=== PATIENT | male | born 1980 | race African-American/Black ===

== ENCOUNTER 2017-11-06 22:51 | Inpatient (IN) | payer OTHER ==
[~2017-11-06 22:51] MED LIST: MELATONIN 5 MG TABLETS PO PRN
[2017-11-06 23:34] VITALS: BMI 46.8
--- NOTE | 2017-11-06 23:37 | HP ---
CIWA Score - CIWA Score Nausea/Vomitin-No Nausea/No Vomiting Muscle Tremors: 2 Anxiety: 2 Agitation: 2 Paroxysmal Sweats: No Perspiration Orientation: 1-Uncertain about Date Tacttile Disturbances: 2-Mild Itch/Numbness/Burn (left thigh) Auditory Disturbances: 0-None Visual Disturbances: 1-Very Mild Sensitivity Headache: 0-None Present CIWA-Ar Total Score: 10 Admission ROS BHS - HPI Chief Complaint: " I need to change my life" Allergies/Adverse Reactions: Allergies Allergy/AdvReac Type Severity Reaction Status Date / Time No Known Allergies Allergy Verified 02/02/16 11:40 History of Present Illness: 37 yo male with hx of alcohol, K2, nicotine and cocaine dependence is here seeking detox. PMHX: HTN (no meds) migraines, back spasms, chronic shoulder pain, insomnia. Denies suicidal / homicidal ideation or suicide attempts. Denies hx of seizures or blackouts. Last detox [facility] 02/01/18 - 02/13/18. Exam Limitations: No Limitations - Review of Systems Constitutional: Chills, Changes in sleep EENT: reports: No Symptoms Reported Respiratory: reports: No Symptoms reported Cardiac: reports: No Symptoms Reported GI: reports: Poor Fluid Intake : reports: No Symptoms Reported Musculoskeletal: reports: Back Pain, Joint Pain (left hip pain, bilateral shoulders) Integumentary: reports: Pruritus Neuro: reports: See HPI, Numbness (left hip, reports seen PMD and result of back spasm) Endocrine: reports: Increased Thirst Hematology: reports: No Symptoms Reported Psychiatric: reports: Orientated x3, Depressed, other (attributes alcohol use father has hx alcoholism) Other Systems: Reviewed and Negative Patient History - Patient Medical History Hx Anemia: No Hx Asthma: No Hx Chronic Obstructive Pulmonary Disease (COPD): No Hx Cancer: No Hx Cardiac Disorders: No Hx Congestive Heart Failure: No Hx Hypertension: Yes (no meds) Hx Hypercholesterolemia: No Hx Pacemaker: No HX Cerebrovascular Accident: No Hx Seizures: No Hx Dementia: No Hx Diabetes: No Hx Gastrointestinal Disorders: No Hx Liver Disease: No Hx Genitourinary Disorders: No Hx Sexually Transmitted Disorders: Yes (treated for Clamydia in the past.) Hx Renal Disease (ESRD): No Hx Thyroid Disease: No Hx Human Immunodeficiency Virus (HIV): No (declines testing today) Hx Hepatitis C: No Hx Depression: No Hx Suicide Attempt: No (denies) Hx Bipolar Disorder: No Hx Schizophrenia: No - Patient Surgical History Past Surgical History: Yes Hx Neurologic Surgery: No Hx Cataract Extraction: No Hx Cardiac Surgery: No Hx Lung Surgery: No Hx Breast Surgery: No Hx Breast Biopsy: No Hx Abdominal Surgery: No Hx Appendectomy: No Hx Cholecystectomy: No Hx Genitourinary Surgery: No Hx Section: No Hx Orthopedic Surgery: Yes (Dislocation of both shoulders 2000) Other Surgical History: LEFT WRIST AND RIGHT THUMB SX FOR CYST REMOVAL IN 2009 Anesthesia Reaction: No - PPD History Date: 02/04/16 Results: 0mm PPD to be Administered?: Yes - Smoking Cessation Smoking history: Current every day smoker Have you smoked in the past 12 months: Yes Aproximately how many cigarettes per day: 6 Cigars Per Day: 0 Hx Chewing Tobacco Use: No Initiated information on smoking cessation: Yes 'Breaking Loose' booklet given: 11/06/17 - Substance & Tx. History Hx Alcohol Use: Yes Hx Substance Use: Yes Substance Use Type: Alcohol, Cocaine Hx Substance Use Treatment: Yes - Substances Abused Alcohol Route: Oral Frequency: Daily Amount used: 3 pints Gin Age of first use: 14 Date of Last Use: 11/05/17 Cocaine Route: Inhalation Frequency: 3-6 times per week Amount used: 1 gram Age of first use: 23 Date of Last Use: 11/02/17 K2 Route: Smoking Frequency: Daily Amount used: 40 blunts Age of first use: 32 Date of Last Use: 11/05/17 Family Disease History - Family Disease History Family Disease History: Diabetes: Grandparent, Mother Admission Physical Exam [facility] Physical General Appearance: Yes: Disheveled, Sweating, Anxious HEENTM: Yes: EOMI, Hearing grossly Normal, Normal ENT Inspection, Normocephalic , Normal Voice, GH[place], Pharynx Normal, Tm's normal Respiratory: Yes: Chest Non-Tender, Lungs Clear, Normal Breath Sounds, No Respiratory Distress, No Accessory Muscle Use Neck: Yes: Within Normal Limits Breast: Yes: Breast Exam Deferred Cardiology: Yes: Regular Rhythm, Regular Rate Abdominal: Yes: Normal Bowel Sounds, Non Tender, Flat, Soft Genitourinary: Yes: Within Normal Limits Back: Yes: Normal Inspection, Muscle Spasm Musculoskeletal: Yes: full range of Motion, Gait Steady, Pelvis Stable, Back pain Neurological: Yes: 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 intact, Fully Oriented, Alert, Motor Strength 5/5, Depressed Affect Integumentary: Yes: Normal Color, Warm, Diaphoresis Lymphatic: Yes: Within Normal Limits - Diagnostic (1) Alcohol dependence with withdrawal Current Visit: Yes Status: Acute Qualifiers: Complication of substance-induced condition: uncomplicated Qualified Code(s ): F10.230 - Alcohol dependence with withdrawal, uncomplicated (2) Synthetic cannabinoid dependence Current Visit: Yes Status: Acute (3) Back pain Current Visit: Yes Status: Acute Qualifiers: Back pain location: low back pain Chronicity: chronic Back pain laterality: left Sciatica presence: with sciatica (4) Shoulder pain Current Visit: Yes Status: Chronic Qualifiers: Chronicity: chronic Laterality: bilateral Qualified Code(s): M25.511 - Pain in right shoulder; M25.512 - Pain in left shoulder; G89.29 - Other chronic pain (5) Cocaine dependence Current Visit: Yes Status: Chronic Qualifiers: Substance use status: uncomplicated Qualified Code(s): F14.20 - Cocaine dependence, uncomplicated (6) Essential hypertension Current Visit: Yes Status: Chronic Comment: Kelly reports currenlty not taking any medications. (7) Nicotine dependence Current Visit: Yes Status: Chronic Qualifiers: Nicotine product type: cigarettes Substance use status: uncomplicated Qualified Code(s): F17.210 - Nicotine dependence, cigarettes, uncomplicated Cleared for Admission S - Detox or Rehab [facility] Level of Care: Medically Supervised Detox Regimen/Protocol: Librium S Breath Alcohol Content Breath Alcohol Content: 0 Urine Drug Screen - Results Drug Screen Negative: No
[2017-11-06] MEDS ORDERED: NICOTINE POLACRILEX 2 MG GUM BC PRN (23:46)
[2017-11-06] MEDS ORDERED: MAGNESIUM HYDROX 2400MG/30ML ORAL SUSPENSION 30 ML CUP PO PRN (23:46)
[2017-11-06] MEDS ORDERED: LOPERAMIDE HCL 2 MG CAPSULE PO PRN (23:46)
[2017-11-06] MEDS ORDERED: guaiFENesin/D-METHORPHAN HB 10 ML UNIT-DOSE CUPS PO PRN (23:46)
[2017-11-06] MEDS ORDERED: IBUPROFEN 400 MG TABLET (FP) PO PRN (23:46)
[2017-11-06] MEDS ORDERED: ACETAMINOPHEN 325 MG TABLET (FP) PO PRN (23:46)
[2017-11-06] MEDS ORDERED: MAG HYDROX/AL HYDROX/SIMETH 30 ML UNIT-DOSE CUP PO PRN (23:46)
[2017-11-06] MEDS ORDERED: chlordiazePOXIDE HCL 25 MG CAPSULE PO ONE (23:46)
[2017-11-06] MEDS ORDERED: MAGNESIUM CITRATE 300 ML BOTTLE PO PRN (23:46)
[2017-11-06] MEDS ORDERED: MENTHOL/PHENOL 1 EACH UD MM PRN (23:46)
[2017-11-06] MEDS ORDERED: hydrOXYzine PAMOATE 50 MG CAPSULE (FP) PO PRN (23:46)
[2017-11-06] MEDS ORDERED: P-EPHED 60MG/TRIPROLIDI 2.5MG TABLET PO PRN (23:46)
[2017-11-06] MEDS ORDERED: chlordiazePOXIDE HCL 25 MG CAPSULE PO PRN (23:46)
[2017-11-07] MEDS: CYCLOBENZAPRINE HCL 5 MG TABLET PO SCH ×4 (01:37→22:12)
[2017-11-07] MEDS: chlordiazePOXIDE HCL 25 MG CAPSULE PO SCH ×6 (03:18→22:12)
[2017-11-07 10:18] LABS: HEMATOCRIT 42.9 % (35.4-49); HEMOGLOBIN 14.5 GM/dL (11.7-16.9); MCHC 33.9 g/dl (32.0-35.9); MEAN CELL VOLUME 91.4 fl (80-96); MEAN PLT VOLUME 7.8 fl (7.5-11.1); PLATELET COUNT 235 K/MM3 (134-434); RBC 4.69 M/mm3 (4.00-5.60); RDW 15.5 % (11.9-15.9); WHITE BLOOD COUNT 7.3 K/mm3 (4.0-10.0)
[2017-11-07] MEDS: PRENATAL VITAMINS W/ FOLIC ACID TABLET (FP) PO SCH (10:50)
[2017-11-07] MEDS: NICOTINE 14 MG/24 HOURS TOPICAL PATCH TD SCH (10:50)
[2017-11-07 11:26] LABS: ALBUMIN 3.3 g/dl (3.4-5.0); ANION GAP 9 (8-16); BLOOD UREA NITROGEN 8 mg/dL (7-18); CALCIUM 8.1 mg/dL (8.5-10.1); CHLORIDE 107 mmol/L (98-107); CO2 26 mmol/L (21-32); CREATININE 0.7 mg/dL (0.7-1.3); GLUCOSE,RANDOM 86 mg/dL (74-106); SGOT/AST 27 U/L (15-37); SGPT/ALT 46 U/L (12-78); SODIUM 142 mmol/L (136-145)
[2017-11-07 11:27] LABS: ALK PHOS 90 U/L (45-117); BILIRUBIN,TOTAL 0.5 mg/dL (0.2-1.0); TOT PROT 6.2 g/dl (6.4-8.2)
--- NOTE | 2017-11-07 11:54 | EKG ---
Test Reason : Blood Pressure : / mmHG Vent. Rate : 057 BPM Atrial Rate : 057 BPM P-R Int : 142 ms QRS Dur : 088 ms QT Int : 420 ms P-R-T Axes : 072 066 052 degrees QTc Int : 408 ms SINUS BRADYCARDIA OTHERWISE NORMAL ECG NO PREVIOUS ECGS AVAILABLE Confirmed by MALIKA GALVEZ, ANGELO ([id number]) on 11/07/2017 11:53:52 AM Referred By: Confirmed By:ANGELO DALY MD
--- NOTE | 2017-11-07 13:37 | PN ---
S CIWA - CIWA Score Nausea/Vomitin-No Nausea/No Vomiting Muscle Tremors: 4-Moderate,w/Arms Extend Anxiety: 4-Mod. Anxious/Guarded Agitation: 4-Moderately Restless Paroxysmal Sweats: 1-Minimal Palms Moist Orientation: 0-Oriented Tacttile Disturbances: 0-None Auditory Disturbances: 0-None Visual Disturbances: 0-None Headache: 0-None Present CIWA-Ar Total Score: 13 BHS Progress Note (SOAP) Subjective: ANXIETY,SWEATS,FATIGUE. Objective: 11/07/17 13:36 Vital Signs 11/07/17 11/07/17 06:30 09:29 Temperature 96.7 F L 96.9 F L Pulse Rate 64 66 Respiratory 18 18 Rate Blood Pressure 135/71 134/80 Laboratory Tests 11/07/17 11/07/17 11/07/17 07:30 07:30 07:30 WBC 7.3 RBC 4.69 Hgb 14.5 Hct 42.9 MCV 91.4 MCH 31.0 MCHC 33.9 RDW 15.5 Plt Count 235 MPV 7.8 D Sodium 142 Potassium 4.0 Chloride 107 Carbon Dioxide 26 Anion Gap 9 BUN 8 Creatinine 0.7 D Creat Clearance w eGFR > 60 Random Glucose 86 Calcium 8.1 L Total Bilirubin 0.5 D AST 27 D ALT 46 D Alkaline Phosphatase 90 Total Protein 6.2 L Albumin 3.3 L D RPR Titer Nonreactive Assessment: 11/07/17 13:36 WITHDRAWAL SX Plan: CONTINUE DETOX
--- NOTE | 2017-11-07 13:51 | CONSULT ---
[facility] Psychiatric Consult - Data Date of interview: 11/07/17 Admission source: [facility] Identifying data: Patient is a 37 year old single male,father of two unemployed , homeless, and supported on SSI benefits. This is one of multiple admissions for patient. Pt. admitted to for alcohol dependence. Substance Abuse History: Smoking Cessation. Smoking history: Current every day smoker. Have you smoked in the past 12 months: Yes. Aproximately how many cigarettes per day: 6. Cigars Per Day: 0. Hx Chewing Tobacco Use: No. Initiated information on smoking cessation: Yes. 'Breaking Loose' booklet given : 11/06/17. - Substance & Tx. History. Hx Alcohol Use: Yes. Hx Substance Use : Yes. Substance Use Type: Alcohol, Cocaine. Hx Substance Use Treatment: Yes. - Substances Abused. Alcohol. Route: Oral. Frequency: Daily. Amount used: 3 pints Gin. Age of first use: 14. Date of Last Use: 11/05/17. Cocaine. Route: Inhalation. Frequency: 3-6 times per week. Amount used: 1 gram. Age of first use: 23. Date of Last Use: 11/02/17. K2. Route: Smoking. Frequency: Daily. Amount used: 40 blunts. Age of first use: 32. Date of Last Use: 11/05/17 Medical History: LEFT WRIST AND RIGHT THUMB SX FOR CYST REMOVAL IN 2009, hypertension Psychiatric History: Patient denies h/o psychiatric hospitalizations, outpatient care, and suicide attempt. Physical/Sexual Abuse/Trauma History: Denies. Mental Status Exam - Mental Status Exam Alert and Oriented to: Time, Place, Person Cognitive Function: Good Patient Appearance: Well Groomed Mood: Hopeful Affect: Mood Congruent Patient Behavior: Cooperative Speech Pattern: Appropriate Voice Loudness: Normal Thought Process: Intact, Goal Oriented Thought Disorder: Not Present Hallucinations: Denies Suicidal Ideation: Denies Homicidal Ideation: Denies Insight/Judgement: Poor Sleep: Fair Appetite: Good Muscle strength/Tone: Normal Gait/Station: Normal Psychiatric Findings - Problem List ([place] 1, 2,3) (1) Alcohol dependence with withdrawal Current Visit: Yes Status: Acute Qualifiers: Complication of substance-induced condition: uncomplicated Qualified Code(s ): F10.230 - Alcohol dependence with withdrawal, uncomplicated (2) Nicotine dependence Current Visit: Yes Status: Acute Qualifiers: Nicotine product type: cigarettes Substance use status: in withdrawal Qualified Code(s): F17.213 - Nicotine dependence, cigarettes, with withdrawal - Initial Treatment Plan Initial Treatment Plan: Psychoeducation provided. Detoxification in progress. Observation.
[2017-11-07] MEDS: THIAMINE HCL 100 MG TABLET (FP) PO SCH (22:12)
[2017-11-08] MEDS: chlordiazePOXIDE 5 MG CAPSULE PO SCH ×4 (05:33→22:13)
[2017-11-08] MEDS: CYCLOBENZAPRINE HCL 5 MG TABLET PO SCH ×3 (05:33→22:14)
[2017-11-08] MEDS: PRENATAL VITAMINS W/ FOLIC ACID TABLET (FP) PO SCH (10:35)
[2017-11-08] MEDS: NICOTINE 14 MG/24 HOURS TOPICAL PATCH TD SCH (10:35)
[2017-11-08] MEDS ORDERED: cloNIDine HCL 0.1 MG TABLET PO ONE (11:41)
--- NOTE | 2017-11-08 13:38 | PN ---
[facility] CIWA - CIWA Score Nausea/Vomitin-No Nausea/No Vomiting Muscle Tremors: 4-Moderate,w/Arms Extend Anxiety: 4-Mod. Anxious/Guarded Agitation: 4-Moderately Restless Paroxysmal Sweats: 1-Minimal Palms Moist Orientation: 0-Oriented Tacttile Disturbances: 0-None Auditory Disturbances: 0-None Visual Disturbances: 0-None Headache: 0-None Present CIWA-Ar Total Score: 13 S Progress Note (SOAP) Subjective: ANXIETY,SWEATS,IRRITABILITY,AGITATIONS. ELEVATED BP AND NO MEDS. PT HAD BEEN ON NORVASC AND HYDROCHLOROTHIAZIDE ON PREVIOUS ADMISSIONS HERE. HX OF HTN BUT APPEARS NONCOMPLIANT WITH FOLLOWING UP AFTER TREATMENT HERE. Objective: 11/08/17 13:36 Vital Signs - 24 hr 11/07/17 11/07/17 11/07/17 13:40 17:44 22:06 Temperature 96.6 F L 97.9 F 97.3 F L Pulse Rate 60 65 71 Respiratory 18 18 18 Rate Blood Pressure 141/76 156/90 159/104 11/08/17 11/08/17 11/08/17 00:30 03:30 06:09 Temperature 96.4 F L Pulse Rate 59 L Respiratory 18 18 18 Rate Blood Pressure 176/108 11/08/17 11/08/17 11/08/17 06:30 07:58 10:15 Temperature 97.1 F L 97.1 F L Pulse Rate 71 57 L Respiratory 18 18 18 Rate Blood Pressure 151/99 165/97 Laboratory Tests 11/07/17 11/07/17 11/07/17 07:30 07:30 07:30 WBC 7.3 RBC 4.69 Hgb 14.5 Hct 42.9 MCV 91.4 MCH 31.0 MCHC 33.9 RDW 15.5 Plt Count 235 MPV 7.8 D Sodium 142 Potassium 4.0 Chloride 107 Carbon Dioxide 26 Anion Gap 9 BUN 8 Creatinine 0.7 D Creat Clearance w eGFR > 60 Random Glucose 86 Calcium 8.1 L Total Bilirubin 0.5 D AST 27 D ALT 46 D Alkaline Phosphatase 90 Total Protein 6.2 L Albumin 3.3 L D RPR Titer Nonreactive OTHER LABS PENDING Assessment: 11/08/17 13:37 WITHDRAWAL SX Plan: CONTINUE DETOX CLONIDINE 0.1 MG PO NOW GIVEN NORVASC 10 MG PO DAILY MAY ADD HYDROCHLOROTHIAZIDE 25 MG PO DAILY IF NOT UNDER CONTROL.
[2017-11-08] MEDS: amLODIPine BESYLATE 10 MG TABLET (FP) PO SCH (14:29)
[2017-11-08 19:52] LABS: URINE APPEARANCE CLEAR; URINE BILIRUBIN NEGATIVE (<2.0 mg/dL); URINE BLOOD NEGATIVE (NEGATIVE); URINE COLOR YELLOW; URINE GLUCOSE (UA) NEGATIVE (NEGATIVE); URINE KETONE NEGATIVE (NEGATIVE); URINE LEUK ESTERASE NEGATIVE (NEGATIVE); URINE NITRITE NEGATIVE (NEGATIVE); URINE PROTEIN NEGATIVE (NEGATIVE); URINE UROBILINOGEN NEGATIVE mg/dL (0.2-1.0)
[2017-11-08] MEDS: THIAMINE HCL 100 MG TABLET (FP) PO SCH (22:14)
[2017-11-09] MEDS: chlordiazePOXIDE HCL 10 MG CAPSULE PO SCH ×2 (06:02→10:37)
[2017-11-09] MEDS: CYCLOBENZAPRINE HCL 5 MG TABLET PO SCH (06:02)
[2017-11-09 09:15] VITALS: BP 153/102; PULSE 95; TEMP 96.8
[2017-11-09] MEDS: NICOTINE 14 MG/24 HOURS TOPICAL PATCH TD SCH (10:37)
[2017-11-09] MEDS: amLODIPine BESYLATE 10 MG TABLET (FP) PO SCH (10:38)
[2017-11-09] MEDS: PRENATAL VITAMINS W/ FOLIC ACID TABLET (FP) PO SCH (10:38)
--- NOTE | 2017-11-09 12:01 | PN ---
[facility] Progress Note (SOAP) Subjective: Patient denies current Detox symptoms and reports that he feels well overall. Objective: PATIENT A & O X 3, OBSERVED AMBULATING ON UNIT. NO ACUTE DISTRESS. 11/09/17 12:00 Vital Signs Temperature 96.8 F L 11/09/17 09:14 Pulse Rate 95 H 11/09/17 09:14 Respiratory Rate 18 11/09/17 09:14 Blood Pressure 153/102 11/09/17 09:14 O2 Sat by Pulse Oximetry (%) Laboratory Tests 11/07/17 11/07/17 11/07/17 07:30 07:30 07:30 WBC 7.3 RBC 4.69 Hgb 14.5 Hct 42.9 MCV 91.4 MCH 31.0 MCHC 33.9 RDW 15.5 Plt Count 235 MPV 7.8 D Sodium 142 Potassium 4.0 Chloride 107 Carbon Dioxide 26 Anion Gap 9 BUN 8 Creatinine 0.7 D Creat Clearance w eGFR > 60 Random Glucose 86 Calcium 8.1 L Total Bilirubin 0.5 D AST 27 D ALT 46 D Alkaline Phosphatase 90 Total Protein 6.2 L Albumin 3.3 L D Urine Color Urine Appearance Urine pH Ur Specific [place] Urine Protein Urine Glucose (UA) Urine Ketones Urine Blood Urine Nitrite Urine Bilirubin Urine Urobilinogen Ur Leukocyte Esterase RPR Titer Nonreactive 11/08/17 19:30 WBC RBC Hgb Hct MCV MCH MCHC RDW Plt Count MPV Sodium Potassium Chloride Carbon Dioxide Anion Gap BUN Creatinine Creat Clearance w eGFR Random Glucose Calcium Total Bilirubin AST ALT Alkaline Phosphatase Total Protein Albumin Urine Color Yellow Urine Appearance Clear Urine pH 6.0 Ur Specific [place] 1.016 Urine Protein Negative Urine Glucose (UA) Negative Urine Ketones Negative Urine Blood Negative Urine Nitrite Negative Urine Bilirubin Negative Urine Urobilinogen Negative Ur Leukocyte Esterase Negative RPR Titer LABS NOTED. Assessment: 11/09/17 12:00 COMPLETION OF DETOX REGIMEN. Plan: PATIENT SCHEDULED FOR DISCHARGE FROM DETOX UNIT TODAY.
--- NOTE | 2017-11-09 12:05 | DS ---
[facility] Detox Discharge Summary Admission Date: 11/06/17 Discharge Date: 11/09/17 - History Present History: Alcohol Dependence, Cocaine Dependence, K 2 Additional Comments: PATIENT GOING HOME TO ATTEND TO PERSONAL AFFAIRS OVER THE WEEKEND, [facility]2017 IN AM TO APPLY FOR REHAB ADMISSION AT THAT TIME. PATIENT WAS DISCHARGED FROM DETOX UNIT IN STABLE MEDICAL CONDITION. Pertinent Past History: HTN (No Meds.), Nicotine Dependence, Shoulder Pain (Bilateral), Back Pain. - Physical Exam Results Vital Signs: Vital Signs Temperature 96.8 F L 11/09/17 09:14 Pulse Rate 95 H 11/09/17 09:14 Respiratory Rate 18 11/09/17 09:14 Blood Pressure 153/102 11/09/17 09:14 O2 Sat by Pulse Oximetry (%) Pertinent Admission Physical Exam Findings: WITHDRAWAL SYMPTOMS. Laboratory Tests 11/07/17 11/07/17 11/07/17 07:30 07:30 07:30 WBC 7.3 RBC 4.69 Hgb 14.5 Hct 42.9 MCV 91.4 MCH 31.0 MCHC 33.9 RDW 15.5 Plt Count 235 MPV 7.8 D Sodium 142 Potassium 4.0 Chloride 107 Carbon Dioxide 26 Anion Gap 9 BUN 8 Creatinine 0.7 D Creat Clearance w eGFR > 60 Random Glucose 86 Calcium 8.1 L Total Bilirubin 0.5 D AST 27 D ALT 46 D Alkaline Phosphatase 90 Total Protein 6.2 L Albumin 3.3 L D Urine Color Urine Appearance Urine pH Ur Specific [place] Urine Protein Urine Glucose (UA) Urine Ketones Urine Blood Urine Nitrite Urine Bilirubin Urine Urobilinogen Ur Leukocyte Esterase RPR Titer Nonreactive 11/08/17 19:30 WBC RBC Hgb Hct MCV MCH MCHC RDW Plt Count MPV Sodium Potassium Chloride Carbon Dioxide Anion Gap BUN Creatinine Creat Clearance w eGFR Random Glucose Calcium Total Bilirubin AST ALT Alkaline Phosphatase Total Protein Albumin Urine Color Yellow Urine Appearance Clear Urine pH 6.0 Ur Specific [place] 1.016 Urine Protein Negative Urine Glucose (UA) Negative Urine Ketones Negative Urine Blood Negative Urine Nitrite Negative Urine Bilirubin Negative Urine Urobilinogen Negative Ur Leukocyte Esterase Negative RPR Titer LABS NOTED. - Treatment Hospital Course: Detox Protocol Followed, Detoxed Safely, Responded well, Discharged Condition Good, Rehab Referral Accepted Patient has Accepted a Rehab Referral to: [facility] ([facility] . - Medication Discharge Medications: Ambulatory Orders NK [No Known Home Medication] 06/09/14 - Diagnosis (1) Alcohol dependence with withdrawal Current Visit: Yes Status: Acute Qualifiers: Complication of substance-induced condition: uncomplicated Qualified Code(s ): F10.230 - Alcohol dependence with withdrawal, uncomplicated (2) Back pain Current Visit: Yes Status: Acute Qualifiers: Back pain location: low back pain Chronicity: chronic Back pain laterality: left Sciatica presence: with sciatica Sciatica laterality: sciatica laterality unspecified Qualified Code(s): M54.40 - Lumbago with sciatica, unspecified side; G89.29 - Other chronic pain (3) Cocaine dependence Current Visit: Yes Status: Acute Qualifiers: Substance use status: uncomplicated Qualified Code(s): F14.20 - Cocaine dependence, uncomplicated (4) Nicotine dependence Current Visit: Yes Status: Acute Qualifiers: Nicotine product type: cigarettes Substance use status: in withdrawal Qualified Code(s): F17.213 - Nicotine dependence, cigarettes, with withdrawal (5) Synthetic cannabinoid dependence Current Visit: Yes Status: Acute (6) Essential hypertension Current Visit: Yes Status: Chronic (7) Shoulder pain Current Visit: Yes Status: Chronic Qualifiers: Chronicity: chronic Laterality: bilateral Qualified Code(s): M25.511 - Pain in right shoulder; M25.512 - Pain in left shoulder; G89.29 - Other chronic pain - AMA Did Patient Leave Against Medical Advice: No
== END 2017-11-09 12:56 | disposition home or self-care (01) | DRG 774 ==
LOC: YASAS 22:51 → Y3N 23:49
PROVIDERS: ADMIT Surgery; ATTEND Surgery
PROC: HZ2ZZZZ Detoxification Services for Substance Abuse Treatment (ICD-10-PCS; principal; 2017-11-06)
DX: F10.230 Alcohol dependence with withdrawal, uncomplicated (principal); F14.20 Cocaine dependence, uncomplicated; F12.20 Cannabis dependence, uncomplicated; F17.213 Nicotine dependence, cigarettes, with withdrawal; I10 Essential (primary) hypertension; M54.42 Lumbago with sciatica, left side; M25.511 Pain in right shoulder; G89.29 Other chronic pain; Z87.438 Personal history of other diseases of male genital organs
CPT/HCPCS: 36415; 80053; 81003; 85027; 86593; 93005; 93010; J0735

== ENCOUNTER 2018-01-03 18:42 | Inpatient (IN) | payer OTHER ==
[2018-01-03 20:01] VITALS: BMI 29.8
--- NOTE | 2018-01-03 22:09 | HP ---
CIWA Score - CIWA Score Nausea/Vomitin-Mild Nausea/No Vomiting Muscle Tremors: 1-None Visible, but [place] Anxiety: 1-Mildly Anxious Agitation: 1-Slight > Activity Paroxysmal Sweats: 4-Forehead w/Sweat Beads Orientation: 0-Oriented Tacttile Disturbances: 0-None Auditory Disturbances: 0-None Visual Disturbances: 0-None Headache: 0-None Present CIWA-Ar Total Score: 8 Admission ROS BHS - HPI Chief Complaint: Here for alcohol withdrawal. Allergies/Adverse Reactions: Allergies Allergy/AdvReac Type Severity Reaction Status Date / Time No Known Allergies Allergy Verified 01/03/18 23:19 History of Present Illness: 37 yom w/ substance use: Alcohol, marijuana, K2, cocaine, PCP. has been using drugs since age 15. Wants to be stop using drugs. States "I'm tired of using drugs. I'm serious'. Only length of sobriety was while incarcerated. Denies hx of blackouts or seizures. Smokes cigarettes and does not want a nicotine patch. Last detox 11/2017 @ [facility]. Hx: HTN and non-compliant w/ medications. Muscle spasms - states can get really painful. Denies other significant PMH Denies depression. Denies suicide or violent ideation. Search Terms: Bro Mathews, 1980 Search Date: 01/03/2018 10:17:50 PM The Drug Utilization Report below displays all of the controlled substance prescriptions, if any, that your patient has filled in the last twelve months. The information displayed on this report is compiled from pharmacy submissions to the Department, and accurately reflects the information as submitted by the pharmacies. This report was requested by: Becka Mauricio | Reference #: [id number] There are no results for the search terms that you entered. Exam Limitations: No Limitations - Ebola screening Have you been sick,other than usual withdrawal symptoms: No - Review of Systems Constitutional: Chills, Diaphoresis, Changes in sleep (Difficulty staying asleep ) EENT: reports: Blurred Vision (Needs glasses but doesn't wear them) Respiratory: reports: No Symptoms reported Cardiac: reports: No Symptoms Reported, Other (Hx: HTN) GI: reports: Nausea (Had r/t withdrawal) : reports: No Symptoms Reported Musculoskeletal: reports: Other (Spasms in back both legs every morning sometimes relieved w/ stretching and relaxation but pain can last.) Integumentary: reports: No Symptoms Reported Neuro: reports: Headache (Hx migraines.), Tremors (mild tremors r/t withdrawal) Endocrine: reports: No Symptoms Reported Hematology: reports: No Symptoms Reported Psychiatric: reports: Orientated x3, Agitated, Anxious Patient History - Patient Medical History Hx Anemia: No Hx Asthma: No Hx Chronic Obstructive Pulmonary Disease (COPD): No Hx Cancer: No Hx Cardiac Disorders: No Hx Congestive Heart Failure: No Hx Hypertension: Yes Hx Hypercholesterolemia: No Hx Pacemaker: No HX Cerebrovascular Accident: No Hx Seizures: No Hx Dementia: No Hx Diabetes: No Hx Gastrointestinal Disorders: No Hx Liver Disease: No Hx Genitourinary Disorders: No Hx Sexually Transmitted Disorders: No Hx Renal Disease (ESRD): No Hx Thyroid Disease: No Hx Human Immunodeficiency Virus (HIV): No (declines testing today) Hx Hepatitis C: No Hx Depression: No Hx Suicide Attempt: No Hx Bipolar Disorder: No Hx Schizophrenia: No - Patient Surgical History Past Surgical History: Yes Hx Neurologic Surgery: No Hx Cataract Extraction: No Hx Cardiac Surgery: No Hx Lung Surgery: No Hx Breast Surgery: No Hx Breast Biopsy: No Hx Abdominal Surgery: No Hx Appendectomy: No Hx Cholecystectomy: No Hx Genitourinary Surgery: No Hx Section: No Hx Orthopedic Surgery: Yes (Dislocation of both shoulders 2000) Other Surgical History: LEFT WRIST AND RIGHT THUMB SX FOR CYST REMOVAL IN 2009 Anesthesia Reaction: No - PPD History Previous Implant?: Yes Documented Results: Negative w/proof Implanted On Prior [facility] Admission?: Yes Date: 11/10/17 Results: 0mm PPD to be Administered?: No - Smoking Cessation Smoking history: Current every day smoker Have you smoked in the past 12 months: Yes Aproximately how many cigarettes per day: 6 Cigars Per Day: 0 Hx Chewing Tobacco Use: No Initiated information on smoking cessation: Yes 'Breaking Loose' booklet given: 01/03/18 - Substance & Tx. History Hx Alcohol Use: Yes Hx Substance Use: Yes Substance Use Type: Alcohol, Cocaine, Marijuana, Tranquilizers (PCP and K2) Hx Substance Use Treatment: Yes (detox and rehab ) - Substances Abused Alcohol Route: Oral Frequency: Daily Amount used: 2 - fifths danae Age of first use: 18 Date of Last Use: 01/01/18 PCP Route: Smoking Frequency: 1-2 times per week Amount used: 3 blunts Age of first use: 22 Date of Last Use: 01/01/18 Marijuana/Hashish Route: Smoking Frequency: Daily Amount used: 1 oz Age of first use: 13 Date of Last Use: 01/03/18 Cocaine Route: Inhalation (sniff) Frequency: 3-6 times per week (3 x/ wk) Amount used: $20 Age of first use: 24 Date of Last Use: 01/01/18 Family Disease History - Family Disease History Family Disease History: Diabetes: Grandparent, Mother Admission Physical Exam [facility] - Vital Signs Vital Signs: Vital Signs - 24 hr 01/03/18 19:59 Temperature 96.6 F L Pulse Rate 66 Respiratory 20 Rate Blood Pressure 149/91 - Physical General Appearance: Yes: Tremorous (mild tremors of hands when extended), Anxious HEENTM: Yes: EOMI, Hearing grossly Normal, Normocephalic, GHASSAN Respiratory: Yes: Chest Non-Tender, Lungs Clear, Normal Breath Sounds Neck: Yes: No masses,lesions,Nodules, Supple Breast: Yes: Breast Exam Deferred Cardiology: Yes: Regular Rhythm, Regular Rate, S1, S2 Abdominal: Yes: Normal Bowel Sounds, Non Tender, Soft Genitourinary: Yes: Within Normal Limits Back: Yes: Normal Inspection Musculoskeletal: Yes: full range of Motion, Gait Steady Extremities: Yes: Normal Capillary Refill, Normal Range of Motion, Non-Tender, Tremors (mild of hands) Neurological: Yes: elementary reading specialist II-XII NML intact, Fully Oriented, Motor Strength 5/5 Integumentary: Yes: Normal Color, Dry, Warm, Other (Cracked skin and lesions between toes. Dry flaky skin of feet L>R.) Lymphatic: Yes: Within Normal Limits - Diagnostic (1) Tinea pedis of both feet Current Visit: Yes Status: Chronic (2) Cocaine use disorder, mild, in early remission Current Visit: Yes Status: Chronic (3) Alcohol dependence with withdrawal Current Visit: Yes Status: Acute Qualifiers: Complication of substance-induced condition: uncomplicated Qualified Code(s ): F10.230 - Alcohol dependence with withdrawal, uncomplicated (4) Nicotine dependence Current Visit: Yes Status: Acute Qualifiers: Nicotine product type: cigarettes Substance use status: in withdrawal Qualified Code(s): F17.213 - Nicotine dependence, cigarettes, with withdrawal (5) Cannabis dependence Current Visit: Yes Status: Chronic (6) PCP DEPENDENCE Current Visit: Yes Status: Chronic (7) Hypertension Current Visit: Yes Status: Chronic Qualifiers: Hypertension type: unspecified Qualified Code(s): I10 - Essential (primary ) hypertension (8) Muscle spasm Current Visit: Yes Status: Chronic Cleared for Admission [facility] - Detox or Rehab [facility] Level of Care: Medically Supervised Detox Regimen/Protocol: Librium [facility] Breath Alcohol Content Breath Alcohol Content: 0 Urine Drug Screen - Results Drug Screen Negative: No Urine Drug Screen Results: THC-Marijuana, PCP-Phencyclidine
[2018-01-03] MEDS ORDERED: MAGNESIUM HYDROX 2400MG/30ML ORAL SUSPENSION 30 ML CUP PO PRN (22:45)
[2018-01-03] MEDS ORDERED: hydrOXYzine PAMOATE 50 MG CAPSULE (FP) PO PRN (22:45)
[2018-01-03] MEDS ORDERED: MAG HYDROX/AL HYDROX/SIMETH 30 ML UNIT-DOSE CUP PO PRN (22:45)
[2018-01-03] MEDS ORDERED: MENTHOL/PHENOL 1 EACH UD MM PRN (22:45)
[2018-01-03] MEDS ORDERED: NICOTINE POLACRILEX 2 MG GUM BC PRN (22:45)
[2018-01-03] MEDS ORDERED: guaiFENesin/D-METHORPHAN HB 10 ML UNIT-DOSE CUPS PO PRN (22:45)
[2018-01-03] MEDS ORDERED: IBUPROFEN 400 MG TABLET (FP) PO PRN (22:45)
[2018-01-03] MEDS ORDERED: chlordiazePOXIDE HCL 25 MG CAPSULE PO PRN (22:45)
[2018-01-03] MEDS ORDERED: LOPERAMIDE HCL 2 MG CAPSULE PO PRN (22:45)
[2018-01-03] MEDS ORDERED: ACETAMINOPHEN 325 MG TABLET (FP) PO PRN (22:45)
[2018-01-03] MEDS ORDERED: P-EPHED 60MG/TRIPROLIDI 2.5MG TABLET PO PRN (22:45)
[2018-01-03] MEDS ORDERED: MAGNESIUM CITRATE 300 ML BOTTLE PO PRN (22:45)
[2018-01-04] MEDS: cloNIDine HCL 0.1 MG TABLET PO PRN ×2 (01:06→22:08)
[2018-01-04] MEDS: chlordiazePOXIDE HCL 25 MG CAPSULE PO SCH ×5 (01:46→22:08)
[2018-01-04] MEDS: CYCLOBENZAPRINE HCL 5 MG TABLET PO SCH ×3 (07:17→22:09)
[2018-01-04 09:59] LABS: HEMATOCRIT 44.1 % (35.4-49); MCH 31.9 pg (25.7-33.7); MCHC 34.1 g/dl (32.0-35.9); MEAN CELL VOLUME 93.7 fl (80-96); MEAN PLT VOLUME 8.1 fl (7.5-11.1); PLATELET COUNT 226 K/MM3 (134-434); WHITE BLOOD COUNT 6.3 K/mm3 (4.0-10.0)
[2018-01-04] MEDS ORDERED: amLODIPine BESYLATE 5 MG TABLET (FP) PO SCH (10:00)
[2018-01-04] MEDS: PRENATAL VITAMINS W/ FOLIC ACID TABLET (FP) PO SCH (10:42)
[2018-01-04] MEDS: TOLNAFTATE 1% CREAM 15 GM TUBE TP SCH ×2 (10:44→22:09)
[2018-01-04 10:49] LABS: CHLORIDE 110 mmol/L (98-107); POTASSIUM 4.1 mmol/L (3.5-5.1); SODIUM 143 mmol/L (136-145)
[2018-01-04 11:01] LABS: ALBUMIN 3.4 g/dl (3.4-5.0); ALK PHOS 88 U/L (45-117); ANION GAP 8 (8-16); BILIRUBIN,TOTAL 0.8 mg/dL (0.2-1.0); BLOOD UREA NITROGEN 9 mg/dL (7-18); CALCIUM 8.6 mg/dL (8.5-10.1); CO2 25 mmol/L (21-32); CREATININE 0.7 mg/dL (0.7-1.3); GLUCOSE,RANDOM 85 mg/dL (74-106); SGOT/AST 16 U/L (15-37); SGPT/ALT 21 U/L (12-78); TOT PROT 6.2 g/dl (6.4-8.2)
[2018-01-04] MEDS ORDERED: amLODIPine BESYLATE 5 MG TABLET (FP) PO ONE (13:46)
--- NOTE | 2018-01-04 13:50 | PN ---
[facility] CIWA - CIWA Score Nausea/Vomitin-No Nausea/No Vomiting Muscle Tremors: 2 Anxiety: 4-Mod. Anxious/Guarded Agitation: 1-Slight > Activity Paroxysmal Sweats: 3 Orientation: 0-Oriented Tacttile Disturbances: 1-Very Mild Itch/Numbness Auditory Disturbances: 0-None Visual Disturbances: 1-Very Mild Sensitivity Headache: 0-None Present CIWA-Ar Total Score: 12 S Progress Note (SOAP) Subjective: Sweating, Anxious, Interrupted Sleep. Objective: PATIENT A & O X 3, OBSERVED AMBULATING ON UNIT. NO ACUTE DISTRESS. PATIENT DENIES CHEST PAIN. 01/04/18 13:48 Vital Signs Temperature 96.9 F L 01/04/18 10:00 Pulse Rate 67 01/04/18 10:00 Respiratory Rate 18 01/04/18 10:00 Blood Pressure 160/104 01/04/18 11:28 O2 Sat by Pulse Oximetry (%) Laboratory Tests 01/04/18 01/04/18 07:40 07:40 WBC 6.3 RBC 4.70 Hgb 15.0 Hct 44.1 MCV 93.7 MCH 31.9 MCHC 34.1 RDW 15.0 Plt Count 226 MPV 8.1 Sodium 143 Potassium 4.1 Chloride 110 H Carbon Dioxide 25 Anion Gap 8 BUN 9 Creatinine 0.7 Creat Clearance w eGFR > 60 Random Glucose 85 Calcium 8.6 Total Bilirubin 0.8 AST 16 D ALT 21 D Alkaline Phosphatase 88 Total Protein 6.2 L Albumin 3.4 LABS NOTED. RPR, UA RESULTS PENDING. 01/04/18 13:50 Assessment: 01/04/18 13:48 WITHDRAWAL SYMPTOMS. HYPERTENSION. Plan: CONTINUE DETOX. AMLODIPINE, 10 MG PO DAILY FOR ELEVATED BP (MINIMAL REDUCTION IN BP FROM INITIAL DOSE OF 5 MG OF AMLODIPINE).
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
[2018-01-04] MEDS: THIAMINE HCL 100 MG TABLET (FP) PO SCH (22:08)
[2018-01-04] MEDS: MELATONIN 5 MG TABLETS PO PRN (22:09)
[2018-01-05] MEDS: CYCLOBENZAPRINE HCL 5 MG TABLET PO SCH ×3 (06:11→22:58)
[2018-01-05] MEDS: chlordiazePOXIDE HCL 25 MG CAPSULE PO SCH ×3 (06:11→18:20)
--- NOTE | 2018-01-05 09:02 | EKG ---
Test Reason : Blood Pressure : / mmHG Vent. Rate : 054 BPM Atrial Rate : 054 BPM P-R Int : 128 ms QRS Dur : 086 ms QT Int : 446 ms P-R-T Axes : 044 064 045 degrees QTc Int : 422 ms SINUS BRADYCARDIA OTHERWISE NORMAL ECG WHEN COMPARED WITH ECG OF 07-NOV-2017 01:14, NO SIGNIFICANT CHANGE WAS FOUND Confirmed by ANGELO DALY MD ([id number]) on 01/05/2018 9:02:27 AM Referred By: Confirmed By:ANGELO DALY MD
[2018-01-05] MEDS: TOLNAFTATE 1% CREAM 15 GM TUBE TP SCH ×2 (10:39→22:58)
[2018-01-05] MEDS: amLODIPine BESYLATE 10 MG TABLET (FP) PO SCH (10:39)
[2018-01-05] MEDS: PRENATAL VITAMINS W/ FOLIC ACID TABLET (FP) PO SCH (10:39)
[2018-01-05] MEDS: LISINOPRIL 10 MG TABLET (FP) PO SCH (13:09)
--- NOTE | 2018-01-05 17:38 | PN ---
S CIWA - CIWA Score Nausea/Vomitin-No Nausea/No Vomiting Muscle Tremors: 2 Anxiety: 3 Agitation: 3 Paroxysmal Sweats: 2 Orientation: 0-Oriented Tacttile Disturbances: 1-Very Mild Itch/Numbness Auditory Disturbances: 0-None Visual Disturbances: 0-None Headache: 0-None Present CIWA-Ar Total Score: 11 BHS Progress Note (SOAP) Subjective: Sweating, Anxious, Interrupted Sleep. Objective: PATIENT A & O X 3, OBSERVED AMBULATING ON UNIT. NO ACUTE DISTRESS. 01/05/18 17:39 Vital Signs Temperature 97.6 F 01/05/18 15:10 Pulse Rate 68 01/05/18 15:10 Respiratory Rate 18 01/05/18 15:10 Blood Pressure 110/70 01/05/18 15:10 O2 Sat by Pulse Oximetry (%) Laboratory Tests 01/04/18 01/04/18 01/04/18 07:40 07:40 07:40 WBC 6.3 RBC 4.70 Hgb 15.0 Hct 44.1 MCV 93.7 MCH 31.9 MCHC 34.1 RDW 15.0 Plt Count 226 MPV 8.1 Sodium 143 Potassium 4.1 Chloride 110 H Carbon Dioxide 25 Anion Gap 8 BUN 9 Creatinine 0.7 Creat Clearance w eGFR > 60 Random Glucose 85 Calcium 8.6 Total Bilirubin 0.8 AST 16 D ALT 21 D Alkaline Phosphatase 88 Total Protein 6.2 L Albumin 3.4 RPR Titer Nonreactive LABS NOTED. Assessment: 01/05/18 17:40 WITHDRAWAL SYMPTOMS. HYPERTENSION. 01/05/18 17:41 Plan: CONTINUE DETOX. START LISINOPRIL, 10 MG PO DAILY FOR PERSISTENTLY ELEVATED BP.
[2018-01-05] MEDS: chlordiazePOXIDE 5 MG CAPSULE PO SCH (22:58)
[2018-01-05] MEDS: THIAMINE HCL 100 MG TABLET (FP) PO SCH (22:58)
[2018-01-06] MEDS: chlordiazePOXIDE 5 MG CAPSULE PO SCH ×3 (06:02→17:41)
[2018-01-06] MEDS: CYCLOBENZAPRINE HCL 5 MG TABLET PO SCH ×3 (06:04→22:04)
[2018-01-06] MEDS: PRENATAL VITAMINS W/ FOLIC ACID TABLET (FP) PO SCH (10:37)
[2018-01-06] MEDS: amLODIPine BESYLATE 10 MG TABLET (FP) PO SCH (10:37)
[2018-01-06] MEDS: LISINOPRIL 10 MG TABLET (FP) PO SCH (10:37)
[2018-01-06] MEDS: TOLNAFTATE 1% CREAM 15 GM TUBE TP SCH ×2 (10:39→22:28)
--- NOTE | 2018-01-06 15:37 | PN ---
BHS Progress Note (SOAP) Subjective: Interrupted sleep due to roommate snoring, sweating Objective: 01/06/18 15:35 Last Vital Signs Temp Pulse Resp BP Pulse Ox 97.6 F 61 18 155/97 01/06/18 14:50 01/06/18 14:50 01/06/18 14:50 01/06/18 14:50 Laboratory Tests 01/04/18 01/04/18 01/04/18 07:40 07:40 07:40 WBC 6.3 RBC 4.70 Hgb 15.0 Hct 44.1 MCV 93.7 MCH 31.9 MCHC 34.1 RDW 15.0 Plt Count 226 MPV 8.1 Sodium 143 Potassium 4.1 Chloride 110 H Carbon Dioxide 25 Anion Gap 8 BUN 9 Creatinine 0.7 Creat Clearance w eGFR > 60 Random Glucose 85 Calcium 8.6 Total Bilirubin 0.8 AST 16 D ALT 21 D Alkaline Phosphatase 88 Total Protein 6.2 L Albumin 3.4 RPR Titer Nonreactive Labs reviewed Assessment: 01/06/18 15:36 Withdrawal symptoms Plan: Continue detox Encouraged PO water intake for hydration
[2018-01-06] MEDS: THIAMINE HCL 100 MG TABLET (FP) PO SCH (22:03)
[2018-01-06] MEDS: chlordiazePOXIDE HCL 10 MG CAPSULE PO SCH (22:03)
[2018-01-06] MEDS: cloNIDine HCL 0.1 MG TABLET PO PRN (22:04)
[2018-01-06] MEDS: MELATONIN 5 MG TABLETS PO PRN (22:04)
[2018-01-07] MEDS: chlordiazePOXIDE HCL 10 MG CAPSULE PO SCH (05:24)
[2018-01-07] MEDS: CYCLOBENZAPRINE HCL 5 MG TABLET PO SCH (05:24)
[2018-01-07] MEDS: cloNIDine HCL 0.1 MG TABLET PO PRN (05:25)
[2018-01-07 09:22] VITALS: BP 139/85; PULSE 68; TEMP 96.8
--- NOTE | 2018-01-07 14:15 | DS ---
[facility] Detox Discharge Summary Admission Date: 01/03/18 Discharge Date: 01/07/18 - History Present History: Alcohol Dependence, Cannabis Dependence, Cocaine Dependence, Pcp Dependence Additional Comments: DETOX COMPLETED. Pertinent Past History: PLEASE SEE DX BELOW - Physical Exam Results Vital Signs: Vital Signs Temperature 96.8 F L 01/07/18 09:21 Pulse Rate 68 01/07/18 09:21 Respiratory Rate 18 01/07/18 09:21 Blood Pressure 139/85 01/07/18 09:21 O2 Sat by Pulse Oximetry (%) Pertinent Admission Physical Exam Findings: WITHDRAWAL SX Laboratory Tests 01/04/18 01/04/18 01/04/18 07:40 07:40 07:40 WBC 6.3 RBC 4.70 Hgb 15.0 Hct 44.1 MCV 93.7 MCH 31.9 MCHC 34.1 RDW 15.0 Plt Count 226 MPV 8.1 Sodium 143 Potassium 4.1 Chloride 110 H Carbon Dioxide 25 Anion Gap 8 BUN 9 Creatinine 0.7 Creat Clearance w eGFR > 60 Random Glucose 85 Calcium 8.6 Total Bilirubin 0.8 AST 16 D ALT 21 D Alkaline Phosphatase 88 Total Protein 6.2 L Albumin 3.4 RPR Titer Nonreactive - Treatment Hospital Course: Detox Protocol Followed, Detoxed Safely, Responded well, Discharged Condition Good - Medication Discharge Medications: Ambulatory Orders NK [No Known Home Medication] 06/09/14 - Diagnosis (1) Alcohol dependence with withdrawal Status: Acute Qualifiers: Complication of substance-induced condition: uncomplicated Qualified Code(s ): F10.230 - Alcohol dependence with withdrawal, uncomplicated (2) Cannabis dependence Status: Acute (3) Cocaine dependence Status: Acute Qualifiers: Substance use status: uncomplicated Qualified Code(s): F14.20 - Cocaine dependence, uncomplicated (4) Hypertension Status: Chronic Qualifiers: Hypertension type: unspecified Qualified Code(s): I10 - Essential (primary ) hypertension (5) Nicotine dependence Status: Acute Qualifiers: Nicotine product type: cigarettes Substance use status: in withdrawal Qualified Code(s): F17.213 - Nicotine dependence, cigarettes, with withdrawal (6) PCP DEPENDENCE Status: Chronic (7) Tinea pedis of both feet Status: Chronic - AMA Did Patient Leave Against Medical Advice: No
--- NOTE | 2018-01-07 16:28 | PN ---
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 DETOX WAS COMPLETED AND PT SIGNED HIS DISCHARGED PAPERS WITH NURSING STAFF ON THE UNIT.
== END 2018-01-07 09:25 | disposition home or self-care (01) | DRG 774 ==
LOC: YASAS 18:42 → Y3N 23:33
PROVIDERS: ADMIT Surgery; ATTEND Surgery
PROC: HZ2ZZZZ Detoxification Services for Substance Abuse Treatment (ICD-10-PCS; principal; 2018-01-03)
DX: F10.230 Alcohol dependence with withdrawal, uncomplicated (principal); F14.20 Cocaine dependence, uncomplicated; F12.20 Cannabis dependence, uncomplicated; F16.20 Hallucinogen dependence, uncomplicated; F17.213 Nicotine dependence, cigarettes, with withdrawal; I10 Essential (primary) hypertension; B35.3 Tinea pedis; M62.838 Other muscle spasm
CPT/HCPCS: 36415; 80053; 85027; 86593; 93005; 93010; J0735

== ENCOUNTER 2018-03-22 11:17 | Inpatient (IN) | payer OTHER ==
[2018-03-22 12:59] VITALS: BMI 26.7
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
[2018-03-22] MEDS ORDERED: guaiFENesin/D-METHORPHAN HB 10 ML UNIT-DOSE CUPS PO PRN (13:36)
[2018-03-22] MEDS ORDERED: P-EPHED 60MG/TRIPROLIDI 2.5MG TABLET PO PRN (13:36)
[2018-03-22] MEDS ORDERED: MAGNESIUM HYDROX 2400MG/30ML ORAL SUSPENSION 30 ML CUP PO PRN (13:36)
[2018-03-22] MEDS ORDERED: MENTHOL/PHENOL 1 EACH UD MM PRN (13:36)
[2018-03-22] MEDS ORDERED: MAG HYDROX/AL HYDROX/SIMETH 30 ML UNIT-DOSE CUP PO PRN (13:36)
[2018-03-22] MEDS ORDERED: IBUPROFEN 400 MG TABLET (FP) PO PRN (13:36)
[2018-03-22] MEDS ORDERED: MAGNESIUM CITRATE 300 ML BOTTLE PO PRN (13:36)
[2018-03-22] MEDS ORDERED: LOPERAMIDE HCL 2 MG CAPSULE PO PRN (13:36)
[2018-03-22] MEDS ORDERED: chlordiazePOXIDE HCL 25 MG CAPSULE PO PRN (13:36)
[2018-03-22] MEDS ORDERED: ACETAMINOPHEN 325 MG TABLET (FP) PO PRN (13:36)
[2018-03-22] MEDS ORDERED: cloNIDine HCL 0.1 MG TABLET PO ONE (14:35)
[2018-03-22] MEDS: chlordiazePOXIDE HCL 25 MG CAPSULE PO SCH ×2 (17:21→22:24)
[2018-03-22 18:08] LABS: URINE APPEARANCE CLEAR; URINE BILIRUBIN NEGATIVE (<2.0 mg/dL); URINE GLUCOSE (UA) NEGATIVE (NEGATIVE); URINE KETONE NEGATIVE (NEGATIVE); URINE LEUK ESTERASE NEGATIVE (NEGATIVE); URINE NITRITE NEGATIVE (NEGATIVE); URINE PROTEIN 1+ (NEGATIVE)
[2018-03-22 18:26] LABS: URINE COLOR YELLOW
[2018-03-22 18:33] LABS: URINE MUCUS MANY
[2018-03-22] MEDS ORDERED: MELATONIN 5 MG TABLETS PO PRN (22:00)
[2018-03-22] MEDS: THIAMINE HCL 100 MG TABLET (FP) PO SCH (22:24)
[2018-03-22] MEDS: hydrOXYzine PAMOATE 50 MG CAPSULE (FP) PO PRN (22:24)
[2018-03-23] MEDS: chlordiazePOXIDE HCL 25 MG CAPSULE PO SCH ×4 (07:17→23:31)
[2018-03-23] MEDS ORDERED: PRENATAL VITAMINS W/ FOLIC ACID TABLET (FP) PO SCH (10:00)
[2018-03-23 10:49] LABS: ALBUMIN 3.8 g/dl (3.4-5.0); ALK PHOS 87 U/L (45-117); ANION GAP 3 MMOL/L (8-16); BILIRUBIN,TOTAL 0.5 mg/dL (0.2-1); BLOOD UREA NITROGEN 12 mg/dL (7-18); CALCIUM 8.7 mg/dL (8.5-10.1); CHLORIDE 110 mmol/L (98-107); CO2 27 mmol/L (21-32); CREATININE 0.8 mg/dL (0.55-1.3); GLUCOSE,RANDOM 124 mg/dL (74-106); SGOT/AST 18 U/L (15-37); SGPT/ALT 21 U/L (13-61); SODIUM 139 mmol/L (136-145); TOT PROT 6.7 g/dl (6.4-8.2)
[2018-03-23 11:08] LABS: HEMATOCRIT 46.5 % (35.4-49); HEMOGLOBIN 15.2 GM/dL (11.7-16.9); MCH 31.5 pg (25.7-33.7); MCHC 32.7 g/dl (32.0-35.9); MEAN CELL VOLUME 96.2 fl (80-96); MEAN PLT VOLUME 8.8 fl (7.5-11.1); PLATELET COUNT 256 K/MM3 (134-434); RBC 4.83 M/mm3 (4.00-5.60); RDW 14.2 % (11.9-15.9); WHITE BLOOD COUNT 7.5 K/mm3 (4.0-10.0)
[2018-03-23] MEDS: hydrOXYzine PAMOATE 50 MG CAPSULE (FP) PO PRN (17:56)
--- NOTE | 2018-03-23 18:10 | EKG ---
Test Reason : Blood Pressure : / mmHG Vent. Rate : 078 BPM Atrial Rate : 078 BPM P-R Int : 134 ms QRS Dur : 090 ms QT Int : 394 ms P-R-T Axes : 072 063 027 degrees QTc Int : 449 ms NORMAL SINUS RHYTHM POSSIBLE LEFT ATRIAL ENLARGEMENT LEFT VENTRICULAR HYPERTROPHY NONSPECIFIC T WAVE ABNORMALITY ABNORMAL ECG WHEN COMPARED WITH ECG OF 04-JAN-2018 00:00, NO SIGNIFICANT CHANGE WAS FOUND Confirmed by HANSA GALVEZ, ELIZA ([id number]) on 03/23/2018 6:10:08 PM Referred By: Confirmed By:ELIZA SANTO MD
--- NOTE | 2018-03-23 21:20 | PN ---
[facility] CIWA - CIWA Score Nausea/Vomitin-Mild Nausea/No Vomiting Muscle Tremors: 3 Anxiety: 3 Agitation: 2 Paroxysmal Sweats: 3 Orientation: 0-Oriented Tacttile Disturbances: 0-None Auditory Disturbances: 0-None Visual Disturbances: 0-None Headache: 0-None Present CIWA-Ar Total Score: 12 S Progress Note (SOAP) Subjective: sleep disturbance sweats Objective: 03/23/18 21:17 Vital Signs Temperature 98.2 F 03/23/18 18:23 Pulse Rate 80 03/23/18 18:23 Respiratory Rate 20 03/23/18 18:23 Blood Pressure 156/102 H 03/23/18 18:23 O2 Sat by Pulse Oximetry (%) Laboratory Last Values WBC 7.5 K/mm3 (4.0-10.0) 03/23/18 05:40 RBC 4.83 M/mm3 (4.00-5.60) 03/23/18 05:40 Hgb 15.2 GM/dL (11.7-16.9) 03/23/18 05:40 Hct 46.5 % (35.4-49) 03/23/18 05:40 MCV 96.2 fl (80-96) H 03/23/18 05:40 MCH 31.5 pg (25.7-33.7) 03/23/18 05:40 MCHC 32.7 g/dl (32.0-35.9) 03/23/18 05:40 RDW 14.2 % (11.9-15.9) 03/23/18 05:40 Plt Count 256 K/MM3 (134-434) 03/23/18 05:40 MPV 8.8 fl (7.5-11.1) 03/23/18 05:40 Sodium 139 mmol/L (136-145) 03/23/18 05:40 Potassium 4.0 mmol/L (3.5-5.1) 03/23/18 05:40 Chloride 110 mmol/L (98-107) H 03/23/18 05:40 Carbon Dioxide 27 mmol/L (21-32) 03/23/18 05:40 Anion Gap 3 MMOL/L (8-16) L 03/23/18 05:40 BUN 12 mg/dL (7-18) 03/23/18 05:40 Creatinine 0.8 mg/dL (0.55-1.3) 03/23/18 05:40 Creat Clearance w eGFR > 60 (>60) 03/23/18 05:40 Random Glucose 124 mg/dL (74-106) H 03/23/18 05:40 Calcium 8.7 mg/dL (8.5-10.1) 03/23/18 05:40 Total Bilirubin 0.5 mg/dL (0.2-1) 03/23/18 05:40 AST 18 U/L (15-37) 03/23/18 05:40 ALT 21 U/L (13-61) 03/23/18 05:40 Alkaline Phosphatase 87 U/L (45-117) 03/23/18 05:40 Total Protein 6.7 g/dl (6.4-8.2) 03/23/18 05:40 Albumin 3.8 g/dl (3.4-5.0) 03/23/18 05:40 Urine Color Yellow 03/22/18 17:55 Urine Appearance Clear 03/22/18 17:55 Urine pH 5.0 (5.0-8.0) 03/22/18 17:55 Ur Specific [place] 1.026 (1.010-1.035) 03/22/18 17:55 Urine Protein 1+ (NEGATIVE) H 03/22/18 17:55 Urine Glucose (UA) Negative (NEGATIVE) 03/22/18 17:55 Urine Ketones Negative (NEGATIVE) 03/22/18 17:55 Urine Blood Negative (NEGATIVE) 03/22/18 17:55 Urine Nitrite Negative (NEGATIVE) 03/22/18 17:55 Urine Bilirubin Negative (<2.0 mg/dL) 03/22/18 17:55 Urine Urobilinogen 2.0 mg/dL (0.2-1.0) 03/22/18 17:55 Ur Leukocyte Esterase Negative (NEGATIVE) 03/22/18 17:55 Urine WBC (Auto) 6 /hpf (3-5) 03/22/18 17:55 Urine RBC (Auto) 4 /hpf (0-3) 03/22/18 17:55 Urine Mucus Many 03/22/18 17:55 RPR Titer Nonreactive (NONREACTIVE) 03/23/18 05:40 Labs noted Assessment: 03/23/18 21:19 withdrawal sx Abnormal UA Plan: continue detox Increase water intake
[2018-03-23] MEDS: THIAMINE HCL 100 MG TABLET (FP) PO SCH (23:31)
[2018-03-24] MEDS: chlordiazePOXIDE HCL 25 MG CAPSULE PO SCH (05:33)
--- NOTE | 2018-03-24 09:06 | DS ---
[facility] Detox Discharge Summary Admission Date: 03/22/18 Discharge Date: 03/24/18 - History Present History: Alcohol Dependence Additional Comments: 37 years old male admitted on 03/22/18 for alcohol withdrawal sx insists to leave the detox unit that something important to do alert oriented x 3 no acute distress denies suicidal denies homocidal no self destructive behavior Pertinent Past History: encourage the patient to go to [facility] for medical mental and addiction issues - Physical Exam Results Vital Signs: Vital Signs Temperature 97.7 F 03/24/18 06:00 Pulse Rate 88 03/24/18 07:00 Respiratory Rate 18 03/24/18 07:00 Blood Pressure 133/91 03/24/18 07:00 O2 Sat by Pulse Oximetry (%) Pertinent Admission Physical Exam Findings: alcohol withdrawal sx Vital Signs Temperature 96.4 F L 03/24/18 09:37 Pulse Rate 77 03/24/18 09:37 Respiratory Rate 16 03/24/18 09:37 Blood Pressure 141/86 03/24/18 09:37 O2 Sat by Pulse Oximetry (%) Laboratory Last Values WBC 7.5 K/mm3 (4.0-10.0) 03/23/18 05:40 RBC 4.83 M/mm3 (4.00-5.60) 03/23/18 05:40 Hgb 15.2 GM/dL (11.7-16.9) 03/23/18 05:40 Hct 46.5 % (35.4-49) 03/23/18 05:40 MCV 96.2 fl (80-96) H 03/23/18 05:40 MCH 31.5 pg (25.7-33.7) 03/23/18 05:40 MCHC 32.7 g/dl (32.0-35.9) 03/23/18 05:40 RDW 14.2 % (11.9-15.9) 03/23/18 05:40 Plt Count 256 K/MM3 (134-434) 03/23/18 05:40 MPV 8.8 fl (7.5-11.1) 03/23/18 05:40 Sodium 139 mmol/L (136-145) 03/23/18 05:40 Potassium 4.0 mmol/L (3.5-5.1) 03/23/18 05:40 Chloride 110 mmol/L (98-107) H 03/23/18 05:40 Carbon Dioxide 27 mmol/L (21-32) 03/23/18 05:40 Anion Gap 3 MMOL/L (8-16) L 03/23/18 05:40 BUN 12 mg/dL (7-18) 03/23/18 05:40 Creatinine 0.8 mg/dL (0.55-1.3) 03/23/18 05:40 Creat Clearance w eGFR > 60 (>60) 03/23/18 05:40 Random Glucose 124 mg/dL (74-106) H 03/23/18 05:40 Calcium 8.7 mg/dL (8.5-10.1) 03/23/18 05:40 Total Bilirubin 0.5 mg/dL (0.2-1) 03/23/18 05:40 AST 18 U/L (15-37) 03/23/18 05:40 ALT 21 U/L (13-61) 03/23/18 05:40 Alkaline Phosphatase 87 U/L (45-117) 03/23/18 05:40 Total Protein 6.7 g/dl (6.4-8.2) 03/23/18 05:40 Albumin 3.8 g/dl (3.4-5.0) 03/23/18 05:40 Urine Color Yellow 03/22/18 17:55 Urine Appearance Clear 03/22/18 17:55 Urine pH 5.0 (5.0-8.0) 03/22/18 17:55 Ur Specific [place] 1.026 (1.010-1.035) 03/22/18 17:55 Urine Protein 1+ (NEGATIVE) H 03/22/18 17:55 Urine Glucose (UA) Negative (NEGATIVE) 03/22/18 17:55 Urine Ketones Negative (NEGATIVE) 03/22/18 17:55 Urine Blood Negative (NEGATIVE) 03/22/18 17:55 Urine Nitrite Negative (NEGATIVE) 03/22/18 17:55 Urine Bilirubin Negative (<2.0 mg/dL) 03/22/18 17:55 Urine Urobilinogen 2.0 mg/dL (0.2-1.0) 03/22/18 17:55 Ur Leukocyte Esterase Negative (NEGATIVE) 03/22/18 17:55 Urine WBC (Auto) 6 /hpf (3-5) 03/22/18 17:55 Urine RBC (Auto) 4 /hpf (0-3) 03/22/18 17:55 Urine Mucus Many 03/22/18 17:55 RPR Titer Nonreactive (NONREACTIVE) 03/23/18 05:40 lab noted - Treatment Hospital Course: Detox Protocol Followed, Responded well Patient has Accepted a Rehab Referral to: [email or web address] - Medication Discharge Medications: Ambulatory Orders NK [No Known Home Medication] 06/09/14 - Diagnosis (1) Alcohol dependence with withdrawal Current Visit: Yes Status: Acute Qualifiers: Complication of substance-induced condition: uncomplicated Qualified Code(s ): F10.230 - Alcohol dependence with withdrawal, uncomplicated (2) Nicotine dependence Current Visit: Yes Status: Acute Qualifiers: Nicotine product type: cigarettes Substance use status: in withdrawal Qualified Code(s): F17.213 - Nicotine dependence, cigarettes, with withdrawal (3) Hypertension Current Visit: Yes Status: Chronic Qualifiers: Hypertension type: unspecified Qualified Code(s): I10 - Essential (primary ) hypertension - AMA Did Patient Leave Against Medical Advice: Yes
[2018-03-24 09:38] VITALS: BP 141/86; PULSE 77; TEMP 96.4
[2018-03-24] MEDS ORDERED: chlordiazePOXIDE 5 MG CAPSULE PO SCH (17:00)
[2018-03-25] MEDS ORDERED: chlordiazePOXIDE HCL 10 MG CAPSULE PO SCH (17:00)
== END 2018-03-24 10:29 | disposition left against medical advice (07) | DRG 770 ==
LOC: YASAS 11:17 → Y6N 13:24
PROC: HZ2ZZZZ Detoxification Services for Substance Abuse Treatment (ICD-10-PCS; principal; 2018-03-22)
DX: F10.230 Alcohol dependence with withdrawal, uncomplicated (principal); F14.20 Cocaine dependence, uncomplicated; F16.20 Hallucinogen dependence, uncomplicated; F12.20 Cannabis dependence, uncomplicated; F17.213 Nicotine dependence, cigarettes, with withdrawal; I10 Essential (primary) hypertension; M54.42 Lumbago with sciatica, left side; G89.29 Other chronic pain; Z87.828 Personal history of other (healed) physical injury and trauma
CPT/HCPCS: 36415; 80053; 81003; 81015; 85027; 86593; 93005; 93010; J0735

== ENCOUNTER 2023-09-04 17:10 | Inpatient (IN) | payer OTHER ==
[2023-09-04 17:39] VITALS: BMI 24.4
[2023-09-04] MEDS ORDERED: BENZONATATE 200 MG CAPSULE PO PRN (18:37)
[2023-09-04] MEDS ORDERED: MAG HYDROX/AL HYDROX/SIMETH 30 ML UNIT-DOSE CUP PO PRN (18:37)
[2023-09-04] MEDS ORDERED: MAGNESIUM HYDROX 2400MG/30ML ORAL SUSPENSION 30 ML CUP PO PRN (18:37)
[2023-09-04] MEDS ORDERED: POLYETHYLENE GLYCOL (HEALTHYLAX) 3350 17 GM PACKET PO PRN (18:37)
[2023-09-04] MEDS ORDERED: DOCUSATE SODIUM 100 MG CAPSULE (FP) PO PRN (18:37)
[2023-09-04] MEDS ORDERED: IBUPROFEN 400 MG TABLET (FP) PO PRN (18:37)
[2023-09-04] MEDS ORDERED: NICOTINE POLACRILEX 2 MG LOZENGE BC PRN (18:37)
[2023-09-04] MEDS ORDERED: NICOTINE POLACRILEX 2 MG GUM BUC PRN (18:37)
[2023-09-04] MEDS ORDERED: ACETAMINOPHEN 325 MG TABLET (FP) PO PRN (18:37)
[2023-09-04] MEDS ORDERED: LOPERAMIDE HCL 2 MG CAPSULE PO PRN (18:37)
[2023-09-04] MEDS ORDERED: BENZOCAINE/MENTHOL (CHLORASEPTIC ) LOZENGE MM PRN (18:37)
[2023-09-04] MEDS ORDERED: guaiFENesin 600 MG TABLET.ER (FP) PO PRN (18:37)
[2023-09-04] MEDS ORDERED: amLODIPine BESYLATE 5 MG TABLET (FP) ONE (19:13)
[2023-09-04] MEDS: amLODIPine BESYLATE 10 MG TABLET (FP) PO SCH (19:16)
[2023-09-04] MEDS: MELATONIN 5 MG TABLETS PO SCH (21:47)
[2023-09-04] MEDS: THIAMINE HCL 100 MG TABLET (FP) PO SCH (21:47)
[2023-09-04] MEDS: hydrOXYzine PAMOATE 25 MG CAPSULE (FP) PO PRN (21:49)
[2023-09-04] MEDS: levETIRAcetam 500 MG TABLET (FP) PO SCH (21:49)
[2023-09-05] MEDS: PRENATAL VITAMINS W/ FOLIC ACID TABLET (FP) PO SCH (10:07)
[2023-09-05 11:50] LABS: URINE APPEARANCE CLEAR; URINE BILIRUBIN NEGATIVE (NEGATIVE); URINE COLOR YELLOW; URINE GLUCOSE (UA) NEGATIVE (NEGATIVE); URINE KETONE NEGATIVE (NEGATIVE); URINE LEUK ESTERASE NEGATIVE (NEGATIVE); URINE NITRITE NEGATIVE (NEGATIVE); URINE PROTEIN NEGATIVE (NEGATIVE); URINE UROBILINOGEN 0.2 mg/dL (0.2-1.0)
[2023-09-05 12:17] LABS: CALCIUM 8.2 mg/dL (8.5-10.1)
[2023-09-05 12:19] LABS: ALBUMIN 3.1 g/dl (3.4-5.0); BLOOD UREA NITROGEN 13.5 mg/dL (7-18)
[2023-09-05 12:22] LABS: CREATININE 0.7 mg/dL (0.55-1.3)
[2023-09-05 12:23] LABS: BILIRUBIN,TOTAL 0.6 mg/dL (0.2-1); HEMATOCRIT 39.1 % (35.4-49); HEMOGLOBIN 13.3 GM/dL (11.7-16.9); MCH 32.4 pg (25.7-33.7); MEAN CELL VOLUME 95.1 fl (80-96); PLATELET COUNT 266 10^3/uL (134-434); RBC 4.11 M/mm3 (4.00-5.60); RDW 14.4 % (11.9-15.9); TOT PROT 6.1 g/dl (6.4-8.2); WHITE BLOOD COUNT 7.3 K/mm3 (4.0-10.0)
[2023-09-05 13:18] LABS: SYPHILIS W/ RPR CONF NON-REACTIVE (NONREACTIVE)
[2023-09-05] MEDS ORDERED: amLODIPine BESYLATE 10 MG TABLET (FP) PO ONE (15:50)
[2023-09-05] MEDS ORDERED: amLODIPine BESYLATE 10 MG TABLET (FP) PO SCH (16:00)
[2023-09-05] MEDS: amLODIPine BESYLATE 10 MG TABLET (FP) PO ONE (16:49)
[2023-09-05] MEDS ORDERED: levETIRAcetam 500 MG TABLET (FP) PO SCH (22:00)
[2023-09-05] MEDS: levETIRAcetam 500 MG TABLET (FP) PO SCH (22:20)
[2023-09-06] MEDS ORDERED: levETIRAcetam 500 MG TABLET (FP) PO SCH ×2 (06:00)
[2023-09-06] MEDS: amLODIPine BESYLATE 10 MG TABLET (FP) PO SCH (06:07)
[2023-09-06] MEDS: PRENATAL VITAMINS W/ FOLIC ACID TABLET (FP) PO SCH (06:08)
[2023-09-08] MEDS: IBUPROFEN 600 MG TABLET (FP) PO PRN (06:15)
[2023-09-08] MEDS: GABAPENTIN 100 MG CAPSULE PO SCH (10:20)
[2023-09-10 16:28] LABS: HIV INTERPRETATION NEGATIVE (NEGATIVE)
[2023-09-12] MEDS: TOLNAFTATE 1% CREAM 15 GM TUBE TP SCH (12:11)
[2023-09-12] MEDS: GABAPENTIN 100 MG CAPSULE PO SCH (13:41)
[2023-09-14 06:40] VITALS: RESP 18; TEMP 97.5
[2023-09-14 09:15] VITALS: BP 146/88; PULSE 69
== END 2023-09-14 14:27 | disposition home or self-care (01) | DRG 772 ==
LOC: YASAS 17:10 → Y3NR 19:12 → Y3W 09-06 10:49
PROVIDERS: ADMIT Allergy & Immunology; ATTEND Psychiatry & Neurology Pain Medicine
PROC: HZ42ZZZ Group Counseling for Substance Abuse Treatment, Cognitive-Behavioral (ICD-10-PCS; principal; 2023-09-04)
DX: F10.20 Alcohol dependence, uncomplicated (principal); F18.288 Inhalant dependence with other inhalant-induced disorder; F12.20 Cannabis dependence, uncomplicated; F16.10 Hallucinogen abuse, uncomplicated; F17.210 Nicotine dependence, cigarettes, uncomplicated; G40.909 Epilepsy, unspecified, not intractable, without status epilepticus; I10 Essential (primary) hypertension; M48.02 Spinal stenosis, cervical region; M21.832 Other specified acquired deformities of left forearm; M24.542 Contracture, left hand; B35.3 Tinea pedis; Z59.02 Unsheltered homelessness
CPT/HCPCS: 36415; 71046-TC-FY; 80053; 80177; 80305; 81003; 85027; 86780; 86803; 87389; 87811; 93005; 93010